=== PATIENT | male | born 1975 | race African-American/Black ===

== ENCOUNTER 2020-01-16 01:03 | Emergency (ER) | payer SELFPAY ==
[2020-01-16] VITALS (7 sets, daily range): BP systolic 117–176; BP diastolic 96–101; PULSE 100–114; RESP 18–22; TEMP 36.9; O2SAT 100
--- NOTE | ~2020-01-16 | XR_ITS ---
EXAMINATION: XR chest 1V portable DATE: 01/16/2020 01:33 INDICATION: Shortness of breath. TECHNIQUE: A single frontal view of the chest was obtained. COMPARISON: None. FINDINGS: The chest demonstrates clear lungs without pneumonia, pleural effusion, or pneumothorax. Th e heart size is normal. IMPRESSION: 1. No acute cardiopulmonary disease. Reviewed, dictated and finalized at location A.
--- NOTE | 2020-01-16 01:14 | ED.ASTHMA ---
HPI - Asthma General Chief Complaint: Asthma Stated Complaint: SOB - Asthma Time Seen by Provider: 01/16/20 01:10 Source: RN notes reviewed History of Present Illness HPI Narrative: Patient presents emergency department from home for asthma exacerbation. Patient states that symptoms began approximately 2 hours ago. Patient states he began to feel short of breath. States uses inhaler with no relief. States he was having associated wheezing. States that prior to 2 hours ago he was feeling fine denies any recent illness. Denies any fevers or chills chest pain abdominal pain nausea vomiting Related Data Home Medications Medication Instructions Recorded Confirmed albuterol sulfate 2 puff INHALATION Q4-6H 01/16/20 01/16/20 Allergies Allergy/AdvReac Type Severity Reaction Status Date / Time No Known Allergies Allergy Verified 01/16/20 01:11 Review of Systems Review of Systems: Narrative: Gen.: Denies fevers or chills ENT: Denies congestion Respiratory: See HPI CV: Denies chest pain or palpitations GI: Denies abdominal pain nausea, emesis or diarrhea Musculoskeletal: Denies back pain or muscle pain Neuro: Denies numbness, tingling, weakness or focal weakness Skin: Denies rash Except as documented, all other systems reviewed and negative PMFSH Past Medical History Medical History (Updated 01/16/20 @ 02:05 by Shen Barnes DO) Asthma Social History Social History (Updated 01/16/20 @ 01:15 by Shen Barnes DO) Smoking status: Never smoker Exam Narrative: Exam Narrative: APPEARANCE: No acute distress, nontoxic, resting in bed EYES: EOMI HEENT: Normocephalic, atraumatic, OMM RESPIRATORY: No respiratory distress wheezing the bilateral upper lung esquivel with decreased breath sounds in the bases. CARDIOVASCULAR: Regular rate and rhythm without murmurs rubs or gallops. ABDOMINAL: Soft, nontender, nondistended, no rebound or guarding MUSCULOSKELETAl: Moves all extremities. No clubbing, cyanosis or edema. NEURO: Awake and alert. Following commands, speech normal, no focal deficits SKIN:: Warm, dry. No rashes lesions or abrasions PSYCHIATRIC: Normal affect/mood, Course Course Emergency Course: Patient states he is feeling much better. Following breathing treatments repeat lung exam clear to auscultation.bilaterally Discussed with patient results of workup and diagnosis. Discussed need for follow-up with primary care, proper use of medication, and reasons to return to the emergency department. Patient understands and agrees to current treatment plan. Patient states he has an inhaler at home Vital Signs Vital signs: Vital Signs Temperature 98.5 F 01/16/20 01:08 Pulse Rate 114 H 01/16/20 01:08 Respiratory Rate 22 H 01/16/20 01:08 Blood Pressure 117/101 H 01/16/20 01:08 Pulse Oximetry 100 01/16/20 01:08 Temperature 98.5 F 01/16/20 01:08 Pulse Rate 108 H 01/16/20 02:20 Respiratory Rate 18 01/16/20 02:20 Blood Pressure 176/96 H 01/16/20 01:14 Pulse Oximetry 100 01/16/20 01:14 MDM - Asthma Imaging Data Attestation: I personally reviewed and interpreted this imaging study as follows: My impression: Chest x-ray reviewed by myself shows no acute process Discharge Plan Discharge Clinical Impression: Asthma with acute exacerbation Patient Disposition: Home, Self-Care Condition: Stable Instructions: Antibiotic Form, Asthma (ED) Additional Instructions: Return for increasing shortness of breath fever or any other symptoms of concern Prescriptions: New prednisone 20 mg tablet 20 mg PO BID Qty: 8 RF: 0 No Action albuterol sulfate 2 puff inhalation Q4-6H RF: 0 Follow-up/Referrals: Jama Chappell MD [Physician] - (Follow-up in 1-2 days for further on-call physician treatment and evaluation) PHYSICIAN,CABBAGE SALTER [Primary Care Provider] - Time of Disposition: 02:56
[2020-01-16] MEDS: IPRATROPIUM BR 0.02% INH SOLN 0.5 MG/2.5 ML VIAL INHALATION ×2 (01:31→02:14)
[2020-01-16] MEDS: ALBUTEROL SULFATE NEB 2.5 MG/0.5 ML INH 5 MG INHALATION ×2 (01:31→02:14)
[2020-01-16] MEDS: predniSONE 20 MG TABLET 60 MG PO (01:45)
== END 2020-01-16 03:05 | disposition home or self-care (01) ==
PROVIDERS: Emergency Provider Emergency Medicine
DX: J45.901 Unspecified asthma with (acute) exacerbation (principal)
CPT/HCPCS: 71045; 94640; 99283; J7512

== ENCOUNTER → 2021-04-17 06:55 | Outpatient (CLI) | payer BC, SELFPAY ==
[2021-04-17 17:38] LABS: SARS-CoV-2 RNA PCR Negative
== END ==
PROVIDERS: PCP Family Medicine; Visit Provider Family Medicine
DX: Z01.812 Encounter for preprocedural laboratory examination (principal); Z20.822 Contact with and (suspected) exposure to COVID-19
CPT/HCPCS: C9803; U0003; U0005

== ENCOUNTER → 2021-04-23 09:11 | Outpatient (CLI) | payer BC, SELFPAY ==
[2021-04-23 20:20] LABS: SARS-CoV-2 RNA PCR Negative
== END ==
PROVIDERS: PCP Family Medicine; Visit Provider Family Medicine
DX: R68.89 Other general symptoms and signs (principal); Z20.822 Contact with and (suspected) exposure to COVID-19
CPT/HCPCS: C9803; U0003; U0005

== ENCOUNTER → 2021-05-15 02:49 | Outpatient (CLI) | payer BC, SELFPAY ==
[2021-05-15 17:39] LABS: SARS-CoV-2 RNA PCR Negative
== END ==
PROVIDERS: PCP Family Medicine; Visit Provider Family Medicine
DX: R50.9 Fever, unspecified (principal); Z20.822 Contact with and (suspected) exposure to COVID-19
CPT/HCPCS: C9803; U0003; U0005

== ENCOUNTER 2021-11-20 21:05 | Emergency (ER) | payer OTHER, BC, MEDICAID, SELFPAY ==
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
[2021-11-20 21:06] VITALS: BP 161/111; PULSE 99; RESP 20; TEMP 36.2; O2SAT 98
[2021-11-20 21:20] VITALS: BP 160/72; RESP 18; O2SAT 99
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
== END 2021-11-20 22:17 | disposition home or self-care (01) ==
PROVIDERS: Emergency Provider Emergency Medicine; PCP Family Medicine
DX: S16.1XXA Strain of muscle, fascia and tendon at neck level, initial encounter (principal); J45.909 Unspecified asthma, uncomplicated; M47.812 Spondylosis without myelopathy or radiculopathy, cervical region; V43.02XA Car driver injured in collision with other type car in nontraffic accident, initial encounter
CPT/HCPCS: 72125; 99284

== ENCOUNTER → 2022-04-03 11:46 | Outpatient (CLI) | payer OTHER, SELFPAY ==
--- NOTE | ~2022-04-03 | MR_ITS ---
EXAMINATION: MR cervical spine wo con, MR lumbar spine wo con, MR thoracic spine wo con DATE: 04/03/2022 12:41 INDICATION: Dorsalgia TECHNIQUE: 1. Magnetic resonance imaging (MRI) of the cervical spine was performed without intravenous contrast. Sequences included sagittal T2-weighted FSE, sagittal T2-weighted FS FSE, sagittal T1-weighted FSE, axial MERGE and axial T2-weighted FSE. 2. MRI of the thoracic spine was performed without intravenous contrast. Sagittal localizer T1-weight ed FSE of the cervicothoracic spine was obtained. Thoracic spine sequences included sagittal T2-weigh rhett FSE, sagittal T1-weighted SE, Sagittal T2-weighted FS FSE, and axial T2-weighted FSE. 3. MRI of the lumbar spine was performed without intravenous contrast. Sequences included sagittal T2 -weighted FSE, sagittal T2-weighted FS FSE, sagittal T1-weighted FSE, and axial T2-weighted FSE COMPARISON: None FINDINGS: CERVICAL SPINE: Bone alignment is normal. Vertebral body heights are normal. Bone marrow signal intensity is normal . Intervertebral disc heights are normal. There are small endplate osteophytes at C4-C5 and C5-C6 Cor d signal intensity is normal. Cervical soft tissues are normal. The following disc levels are specifi jasmyn discussed: C2-C3: The disc does not extend beyond the endplate margin. There is no uncovertebral joint osteoarth ritis. There is mild bilateral facet joint osteoarthritis. There is no neural foraminal stenosis. The re is no central canal stenosis. C3-C4: The disc does not extend beyond the endplate margin. There is minimal right uncovertebral join t osteoarthritis. There is mild bilateral facet joint osteoarthritis. There is no neural foraminal st enosis. There is no central canal stenosis. C4-C5: The disc does not extend beyond the endplate margin. There is mild bilateral uncovertebral pepper nt osteoarthritis. There is mild bilateral facet joint osteoarthritis. There is mild left and minimal right neural foraminal stenosis. There is no central canal stenosis. C5-C6: Disc is mildly bulging. There is mild left and minimal right uncovertebral joint osteoarthriti s. There is minimal bilateral facet joint osteoarthritis. There is mild left neural foraminal stenosi s. There is no central canal stenosis. C6-C7: Disc is mildly bulging. There is mild left and minimal right uncovertebral joint osteoarthriti s. There is minimal bilateral facet joint osteoarthritis. There is mild left neural foraminal stenosi s. There is no central canal stenosis. C7-T1: The disc does not extend beyond the endplate margin. There is no uncovertebral joint osteoarth ritis. There is mild right and moderate left facet joint osteoarthritis. There is no neural foraminal stenosis. There is no central canal stenosis. THORACIC SPINE: Alignment is normal. Vertebral body heights are normal. Small T1 hyperintense hemangioma at T12. Jordana ow signal is otherwise normal. Moderate disc height loss at T4-T5 T5-T6, T8-T9 and T9-T10, mild disc height loss at T2-T3, T3-T4 and T6-T7. Small left foraminal zone disc protrusions at T3-T4 and T5-T6 and small left foraminal zone disc extrusion at T4-T5 which do not significantly narrow the central c anal. Annular fissure and small central disc extrusion at T8-T9 which results in minimal central jorje l stenosis but does indent the ventral surface of the cord. Moderate facet osteoarthritis contributin g to mild neural foraminal stenosis bilaterally at T10-T11. Multilevel mild bilateral facet osteoarth ritis without additional neural foraminal stenosis throughout the remainder of the thoracic spine. Sp inal cord signal is normal. Paravertebral soft tissues are unremarkable. LUMBAR SPINE: Alignment is normal. Vertebral body heights are normal. Mild fibrovascular degenerative endplate cummings ges along superior endplate of S1. Marrow signal is otherwise normal. Mild disc desiccation
== END ==
PROVIDERS: PCP Family Medicine; Visit Provider Family Medicine
DX: M54.2 Cervicalgia (principal); M54.9 Dorsalgia, unspecified; M47.812 Spondylosis without myelopathy or radiculopathy, cervical region; M47.814 Spondylosis without myelopathy or radiculopathy, thoracic region; M47.816 Spondylosis without myelopathy or radiculopathy, lumbar region
CPT/HCPCS: 72141; 72146; 72148

== ENCOUNTER 2024-01-01 16:08 | Emergency (ER) | payer SELFPAY ==
--- NOTE | ~2024-01-01 | CT_ITS ---
EXAMINATION: CT soft tissue neck w con DATE: 01/01/2024 17:24 INDICATION: Left face swelling. TECHNIQUE: Computed tomography (CT) of the neck was performed with 75 mL Omnipaque-350 intravenous co ntrast. Automated exposure control and iterative reconstruction technique were employed. The dose-gary gth product was 524.08 mGy-cm. COMPARISON: CT cervical spine 11/20/2021 FINDINGS: The left parotid gland demonstrates enlargement and increased density with surrounding fat stranding. There is no sialolith. There is a 9 mm nodule in right thyroid lobe, likely not clinically significant. There is a mildly enlarged high left internal jugular chain lymph node. There is mild m ucosal thickening in the paranasal sinuses. The mastoid air cells are normal. There is cerumen in the external auditory canals. There is mild cervical spondylosis. IMPRESSION: 1. Left-sided parotiditis. No sialolith. 2. Mildly enlarged left high internal jugular chain lymph node, likely reactive. Reviewed, dictated and finalized at location A. IMPRESSION: 1. Left-sided parotiditis. No sialolith. 2. Mildly enlarged left high internal jugular chain lymph node, likely reactive .
[2024-01-01 16:15] VITALS: BP 187/118; PULSE 136; RESP 18; TEMP 36.5; O2SAT 100
--- NOTE | 2024-01-01 16:21 | ED.GENADULT ---
HPI - General Adult General Chief complaint: Dental/Oral <Noris Morales PA-C - Last Filed: 01/01/24 16:32> Stated complaint: swelling to the left side of face/neck <Noris Morales PA-C - Last Filed: 01/01/24 16:32> Time Seen by Provider: 01/01/24 19:01 <Noris Morales PA-C - Last Filed: 01/01/24 16:32> Focused HPI: 48-year-old male presents to the emergency department for left-sided facial swelling and pain for 2 days. He presents with his from the bedside who assists with history. Patient states he has had intermittent swelling and pain to this area for a long time. He has seen a dentist about and was told that he can massage the area when it occurs. States he usually does this and it goes away, however it has not lasted this long before or been this painful. He denies difficulty tolerating his secretions or dental pain. Denies fever, nausea or vomiting. GENERAL: Well-appearing, well-nourished, and in no acute distress. HEAD: Normocephalic, atraumatic. ENT: Edema and tenderness to the left side of the face extending from the top of the level of the auricle, overlying the parotid and extending down into the submandibular space. No areas of fluctuance however there is induration throughout. Brannon's duct visualized with a white drainage and tenderness. No dental caries. Floor mouth is soft without crepitus. Airway intact. CHEST: Clear to auscultation. ?No respiratory distress. HEART: Tachycardic with regular rhythm. NEURO: ?Alert and oriented x3. Patient screened in triage and initial orders placed.? ?Additional care and disposition to be based upon?diagnostic testing and treatment. Attempted to obtain EKG in triage due to tachycardia 136, however patient declined. <Noris Morales PA-C - Last Filed: 01/01/24 16:32> Focused HPI: 48-year-old male presents to the emergency department for left-sided facial swelling and pain for 2 days. He presents with his from the bedside who assists with history. Patient states he has had intermittent swelling and pain to this area for a long time. He has seen a dentist about and was told that he can massage the area when it occurs. States he usually does this and it goes away, however it has not lasted this long before or been this painful. He denies difficulty tolerating his secretions or dental pain. Denies fever, nausea or vomiting. GENERAL: Well-appearing, well-nourished, and in no acute distress. HEAD: Normocephalic, atraumatic. ENT: Edema and tenderness to the left side of the face extending from the top of the level of the auricle, overlying the parotid and extending down into the submandibular space. No areas of fluctuance however there is induration throughout. Brannon's duct visualized with a white drainage and tenderness. No dental caries. Floor mouth is soft without crepitus. Airway intact. CHEST: Clear to auscultation. ?No respiratory distress. HEART: Tachycardic with regular rhythm. NEURO: ?Alert and oriented x3. Patient screened in triage and initial orders placed.? ?Additional care and disposition to be based upon?diagnostic testing and treatment. Attempted to obtain EKG in triage due to tachycardia 136, however patient declined. <Florence Nguyen MD - Last Filed: 01/01/24 19:48> Related Data Allergies/adverse reactions: Allergies Allergy/AdvReac Type Severity Reaction Status Date / Time No Known Allergies Allergy Verified 01/01/24 16:16 <Noris Morales PA-C - Last Filed: 01/01/24 16:32> Review of Systems Review of Systems: All systems are reviewed and are negative unless stated otherwise in the HPI. <Florence Nguyen MD - Last Filed: 01/01/24 19:48> PMFSH Past Medical History Medical History: Medical History Asthma <Noris Morales PA-C - Last Filed: 01/01/24 16:32> Family History Family History: Family History (Review
[2024-01-01 16:39] LABS: Basophils Absolute Auto 0.1 K/mm3 (0.0-0.1); Basophils Percent Auto 0.4 % (0.2-1.2); Eosinophils Absolute Auto 0.2 K/mm3 (0-0.3); Eosinophils Percent Auto 1.8 % (0-4.4); Hematocrit 50.1 % (42.0-52.0); Hemoglobin 16.2 g/dL (14.0-18.0); Immature Granulocyte Absolute 0.04 K/mm3 (0.00-0.031); Immature Granulocyte Percent A 0.3 % (0-0.5); Lymphocytes Absolute Auto 0.77 K/mm3 (0.9-3.2); Lymphocytes Percent Auto 6.4 % (18.3-44.2); Mean Corpuscular HGB Conc 32.3 g/dl (32-36); Mean Corpuscular Hemoglobin 27.1 pg (26-34); Mean Corpuscular Volume 83.8 fl (80-100); Mean Platelet Volume 9.7 fl (7.4-10.4); Neutrophils Absolute Auto 9.9 K/mm3 (1.3-6.7); Neutrophils Percent Auto 83.1 % (45.5-73.1); Platelet Count Result 324 k/mm3 (150-375); Red Blood Count 5.98 M/mm3 (4.6-6.20); Red Cell Distribution Width 13.4 % (11.5-14.5); White Blood Count 11.9 K/mm3 (4.5-10.0)
--- NOTE | 2024-01-01 16:49 | PC.NURSE ---
Refused EKG. States I don't want unnecessary tests.
[2024-01-01 16:59] LABS: Alanine Aminotransferase 39 U/L (6-50); Albumin Level 4.8 g/dL (3.5-5.1); Alkaline Phosphatase 116 U/L (38-126); Anion Gap 9 mmol/L (4-12); Aspartate Amino Transferase 31 U/L (17-59); Bilirubin,Total 0.6 mg/dL (0.2-1.3); Blood Urea Nitrogen 14 mg/dL (9-20); Calcium 9.6 mg/dL (8.4-10.2); Carbon Dioxide 22 mmol/L (22-30); Chloride 105 mmol/L (98-107); Estimated CRCL calculation 98 ml/min; Estimated Glomerular Filt Rate > 60; Glucose 106 mg/dL (65-110); Sodium 136 mmol/L (137-145)
[2024-01-01] MEDS: ACETAMINOPHEN 500 MG TABLET 1000 MG PO (17:42)
[2024-01-01] MEDS: KETOROLAC 15 MG/ML VIAL (*BKC) IV PUSH (19:32)
[2024-01-01 19:53] VITALS: BP 180/113; PULSE 130; RESP 15; O2SAT 100
== END 2024-01-01 19:54 | disposition home or self-care (01) ==
LOC: ANHED 19:40
PROVIDERS: Physician Assistant; Emergency Provider Emergency Medicine; PCP Family Medicine Sports Medicine
DX: K11.21 Acute sialoadenitis (principal); R03.0 Elevated blood-pressure reading, without diagnosis of hypertension; J45.909 Unspecified asthma, uncomplicated
CPT/HCPCS: 36415; 70491; 80053; 85025; 96374; 99284; A9270; J1885; Q9967